=== PATIENT | male | born 1970 | race Caucasian/White ===

== ENCOUNTER 2020-05-28 12:32 | Emergency (ER) | payer MEDICAID ==
[~2020-05-28] VITALS: Ht 170.2 cm; Wt 73.0 kg
[2020-05-28 13:50] LABS: BASOPHILS % 1.1 % (0.0-2.0); EOSINOPHILS % 0.4 % (0.0-5.0); HEMATOCRIT. 49.4 % (42.0-52.0); HEMOGLOBIN. 16.6 g/dL (14.0-18.0); LYMPHOCYTES % 38.4 % (20.0-50.0); MEAN CORPUSCULAR HEMOGLOBIN 31.6 pg (28.0-32.0); MEAN PLATELET VOLUME 6.2 fl (7.4-10.4); MONOCYTES % 6.1 % (2.0-8.0); PLATELET 289 x1000/uL (130-400); RED BLOOD CELL COUNT 5.25 mill/uL (4.7-6.1); RED CELL DISTRIBUTION WIDTH 13.8 % (11.6-14.6)
[2020-05-28 13:56] LABS: CHLORIDE 107 mEq/L (98-107)
[2020-05-28 14:18] LABS: ETHANOL BLOOD 560 mg/dL
[2020-05-28 14:30] LABS: CLARITY URINE CLEAR (CLEAR); COLOR URINE YELLOW (YELLOW); KETONES URINE NEGATIVE (NEGATIVE); LEUKOCYTE ESTERASE URINE NEGATIVE (NEGATIVE); NITRITE URINE NEGATIVE (NEGATIVE); OCCULT BLOOD URINE NEGATIVE (NEGATIVE); PROTEIN URINE 1+ (NEGATIVE); SPECIFIC GRAVITY URINE 1.014 (1.005-1.030); UROBILINOGEN URINE 0.2 E.U./dL (0.2-1.0)
[2020-05-28 14:56] LABS: *AMPHETAMINES SCREEN URINE NEGATIVE (NEGATIVE); *BARBITURATES SCREEN URINE NEGATIVE (NEGATIVE); *BENZODIAZEPINES SCREEN URINE NEGATIVE (NEGATIVE); *COCAINE SCREEN URINE NEGATIVE (NEGATIVE)
[2020-05-28 14:57] LABS: CANNABINOID URINE SCREEN NEGATIVE (NEGATIVE); METHADONE URINE SCREEN NEGATIVE (NEGATIVE); OPIATES URINE SCREEN NEGATIVE (NEGATIVE); PHENCYCLIDINE URINE SCREEN NEGATIVE (NEGATIVE)
[2020-05-28] MEDS ORDERED: HALOPERIDOL LACTATE 5MG/ML VIAL IM ONE (15:15)
[2020-05-28] MEDS ORDERED: LORAZEPAM 2MG/ML CPJ IV ONE ×2 (15:15→18:00)
[2020-05-28] MEDS ORDERED: CHLORDIAZEPOXIDE 25MG CAPSULE PO ONE ×2 (18:00→20:00)
[2020-05-28] MEDS ORDERED: LORAZEPAM 1MG TABLET PO ONE ×2 (18:00→20:00)
[2020-05-29 06:00] VITALS: BP 121/72
== END 2020-05-29 06:15 | disposition home or self-care (01) ==
LOC: EDBD 12:32 → ER 12:32
DX: T51.0X1A Toxic effect of ethanol, accidental (unintentional), initial encounter (principal); T43.621A Poisoning by amphetamines, accidental (unintentional), initial encounter; G92 Toxic encephalopathy; F10.129 Alcohol abuse with intoxication, unspecified; Y90.8 Blood alcohol level of 240 mg/100 ml or more; F15.129 Other stimulant abuse with intoxication, unspecified; Y92.512 Supermarket, store or market as the place of occurrence of the external cause; R03.0 Elevated blood-pressure reading, without diagnosis of hypertension
CPT/HCPCS: 36415; 70450; 80053; 80305; 80307; 80320; 80329; 81003; 85025; 93005; 96374; 99285; J2060; G0480